=== PATIENT | male | born 1960 | race Caucasian/White ===

== ENCOUNTER 2023-08-15 03:20 | Emergency (ER) | payer SELFPAY ==
[2023-08-15] VITALS (11 sets, daily range): BP systolic 104–115; BP diastolic 68–80; PULSE 46–64; RESP 12–19; TEMP 36.3; O2SAT 96–100
== END 2023-08-15 07:05 | disposition left against medical advice (07) ==
DX: R51.9 Headache, unspecified (principal)
CPT/HCPCS: 99199